=== PATIENT | female | born 1990 | race Caucasian/White ===

== ENCOUNTER 2017-10-10 20:58 | Emergency (ER) | payer OTHER, SELFPAY ==
[2017-10-10 21:06] VITALS: BP 123/75; PULSE 90; RESP 16; TEMP 37.1; O2SAT 100; BMI 20.5
--- NOTE | 2017-10-10 21:12 | DI.RAD.S_ITS ---
PROCEDURE: XR TOE LT MIN 2V INDICATIONS: Ax struck foot, 3 DIGIT TECHNIQUE: 3 views of the left third toe(s) acquired. COMPARISON: None. FINDINGS: Bones: No fractures or dislocations. No suspicious bony lesions. Bone island within the proximal phalanx of the second digit. Soft tissues: No suspicious soft tissue densities. IMPRESSION: No acute fracture. No osseous lesion. If clinical suspicion and/or symptoms persist, further assessment with repeat plainfilms, or advanced imaging (e.g., CT, MRI, or bone scan) may be helpful for further assessment. Dictated by: Stephon Acevedo M.D. on 10/10/2017 at 21:45 Approved by: Stephon Acevedo M.D. on 10/10/2017 at 21:45
--- NOTE | 2017-10-10 21:57 | ED.WOUNDLAC ---
HPI - Wound/Laceration <KANG Wright - Last Filed: 10/10/17 22:20> General Chief Complaint: Wound/Laceration Stated Complaint: HIT TOP OF LEFT FOOT WITH AN AXE Time Seen by Provider: 10/10/17 21:57 History of Present Illness HPI narrative: Healthy 26-year-old female here for complaint of a wound to her dorsal aspect of her 3rd left toe after accidentally hitting it with an axis earlier today. She states that there is a laceration to that toe. She denies any other injuries or concerns. Increased pain to the area with weight-bearing. She states that her tetanus is up-to-date. Incident happened just prior to arrival Related Data Home Medications Medication Instructions Recorded Confirmed No Known Home Medications 10/10/17 10/10/17 Review of Systems <KANG Wright - Last Filed: 10/10/17 22:20> Constitutional Denies chills, Denies fever(s), Denies lethargy and Denies weakness Eyes Denies change in vision, Denies eye discharge, Denies irritation and Denies loss of vision ENT Ears, Nose, Mouth, and Throat: Denies change in voice, Denies neck pain and Denies sore throat Cardiovascular Denies chest pain, Denies irregular heart rhythm, Denies lightheadedness, Denies palpitations, Denies dyspnea, Denies dyspnea on exertion and Denies orthopnea Respiratory Denies cough, Denies dyspnea, Denies dyspnea on exertion and Denies wheezing Gastrointestinal Gastrointestinal: Denies abdominal pain, Denies change in bowel habits, Denies diarrhea, Denies nausea and Denies vomiting Genitourinary Denies hematuria, Denies flank pain, Denies urinary incontinence and Denies urinary urgency Musculoskeletal Denies neck pain Comments: Laceration to the 3rd toe Integumentary/Breasts Denies pruritus, Denies erythema, Denies rash and Denies wounds Neurologic Denies confusion, Denies loss of vision and Denies weakness Psychiatric Denies anxiety, Denies confusion, Denies depression, Denies homicidal ideation and Denies suicidal ideation Endocrine Denies palpitations Allergic/Immunologic Denies wheezing Exam <KANG Wright - Last Filed: 10/10/17 22:20> Initial Vital Signs Initial Vital Signs: Vital Signs Temperature 98.7 F 10/10/17 21:06 Pulse Rate 90 10/10/17 21:06 Respiratory Rate 16 10/10/17 21:06 Blood Pressure 123/75 H 10/10/17 21:06 Pulse Oximetry 100 10/10/17 21:06 Const General: cooperative and well developed Nutritional Appearance: well nourished Orientation: alert, awake, oriented x3 and not confused HENMS Nose: nasal discharge Face and sinus: sinus tenderness and dry mucous membranes Mouth: oral mucosae normal and moist mucous membranes Throat: tonsils normal and uvula midline Eyes Conjunctivae: conjunctivae normal Sclera: sclerae normal Pupils: PERRL EOM: EOM intact bilaterally Resp Effort & Inspection: normal respiratory effort, able to speak in complete sentences, no respiratory distress and no use of accessory muscles Auscultation: clear to auscultation bilaterally, no rales, no rhonchi and no wheezes Cardio Rate: regular rate Rhythm: regular rhythm Heart Sounds: no click, no gallops, no murmurs and no rubs Pulses: normal peripheral pulses Skin General: no rashes or lesions noted, No jaundice and No petechiae Extrem Other: Left 3rd toe with 3 cm laceration to the dorsal aspect of the left 3rd toe over the proximal phalanx and Mtp loint. Distal sensation is intact. Full range of motion. Distal cap refill less than 2 sec. <Esau Edward DO - Last Filed: 10/10/17 23:45> Initial Vital Signs Initial Vital Signs: Vital Signs Temperature 98.7 F 10/10/17 21:06 Pulse Rate 90 10/10/17 21:06 Respiratory Rate 16 10/10/17 21:06 Blood Pressure 123/75 H 10/10/17 21:06 Pulse Oximetry 100 10/10/17 21:06 Procedures <KANG Wright - Last Filed: 10/10/17 22:20> Laceration Repair Laceration 1: Site: lower extremity (Left dorsal aspect of 3rd toe) Side (If applicable): left Size (cm): 3 Description: linear Depth: simple, single layer Local Anesthetic: lidocaine 1% Amount of anesthesia used (mL): 3 Pre-repair: wound explored and irrigated extensively Skin layer closed with: nylon Size (cm): 5-0 Number of sutures: 7 Technique: simple, interrupted Course <KANG Wright - Last Filed: 10/10/17 22:20> Orders Ordered: ED Orders 10/10/17 21:12 XR toe LT min 2V Stat Vital Signs - 8 hr 10/10/17 21:06 10/10/17 22:29 Temperature 98.7 F Pulse Rate 90 70 Respiratory Rate 16 17 Blood Pressure 123/75 H 122/66 H Pulse Oximetry 100 99 <Esau Edward DO - Last Filed: 10/10/17 23:45> Orders Ordered: ED Orders 10/10/17 21:12 XR toe LT min 2V Stat Vital Signs - 8 hr 10/10/17 21:06 10/10/17 22:29 Temperature 98.7 F Pulse Rate 90 70 Respiratory Rate 16 17 Blood Pressure 123/75 H 122/66 H Pulse Oximetry 100 99 MDM - Wound/Laceration <KANG Wright - Last Filed: 10/10/17 22:20> MDM Narrative Medical decision making narrative: X-ray of the left toes was obtained was negative for any acute fractures. Laceration to the 3rd toe was closed with 7 sutures. Sutures to be removed in 10 days. Wound dressed with bacitracin and dressing. Keep dressing on clean and dry for the next 24-36 hr. After this timeframe a shower briefly dry wound afterwards redressed with bacitracin and a dressing. Dress wound daily with bacitracin and dressing until healed. [id number] Tylenol or Motrin as needed for any discomfort. Wear postop shoe for comfort and support as directed. For any worsening symptoms return to the emergency room. Follow up with your regular doctor. Discharge Plan Departure Patient Disposition: Home, Self-Care Clinical Impression: Laceration of toe, left Discharge Date/Time: 10/10/17 22:31 Interventions: ED Discharge Assessment Last Done: 10/10/17 22:29 Instructions: DI for Laceration Repair Activity Restrictions/Additional Instructions: X-ray of the left toes was obtained was negative for any acute fractures. Laceration to the 3rd toe was closed with 7 sutures. Sutures to be removed in 10 days. Wound dressed with bacitracin and dressing. Keep dressing on clean and dry for the next 24-36 hr. After this timeframe a shower briefly dry wound afterwards redressed with bacitracin and a dressing. Dress wound daily with bacitracin and dressing until healed. [id number] Tylenol or Motrin as needed for any discomfort. Wear postop shoe for comfort and support as directed. For any worsening symptoms return to the emergency room. Follow up with your regular doctor. Prescriptions: No Action No Known Home Medications RF: 0 Referrals: [facility] [Provider Group] <Esau Edward DO - Last Filed: 10/10/17 23:45> Cosign ED Attending Jaison Attestation: I was immediately available in the department for consultation. Documentation has been reviewed. I agree with assessment and plan.
--- NOTE | 2017-10-10 22:05 | PC.NURSE ---
bacitracin and band aid to wound
[2017-10-10 22:29] VITALS: BP 122/66; PULSE 70; RESP 17; O2SAT 99
== END 2017-10-10 22:31 | disposition home or self-care (01) ==
PROVIDERS: Emergency Provider Nurse Practitioner Family
DX: S91.115A Laceration without foreign body of left lesser toe(s) without damage to nail, initial encounter (principal); W27.0XXA Contact with workbench tool, initial encounter
CPT/HCPCS: 12002; 73660; 99283